=== PATIENT | male | born 1965 | race Caucasian/White ===

== ENCOUNTER → 2016-10-18 | Outpatient (CLI) | payer OTHER ==
[~2016-10-18] MED LIST: LSN20 PO; PRLSR20 PO
[2016-10-18 12:08] LABS: HEMATOCRIT 46.5 % (42-52); MEAN CELL VOLUME 80.9 fL (80-100); MEAN CORPUSCULAR HEMOGLOBIN 26.1 pg (25-34); MEAN CORPUSCULAR HGB CONC 32.3 g/dl (32-36); MEAN PLATELET VOLUME 9.3 fL (7.4-10.4); PLATELET COUNT 243 K/uL (130-400); RED BLOOD COUNT 5.75 M/uL (4.7-6.1); WHITE BLOOD COUNT 5.63 K/uL (4.8-10.8)
[2016-10-18 12:51] LABS: ALT/SGPT 39 U/L (12-78); AST/SGOT 21 U/L (15-37); BLOOD UREA NITROGEN 11 mg/dl (7-18); BUN/CREATININE RATIO 11.4 (10-20); CARBON DIOXIDE 32 mmol/L (21-32); CHLORIDE 107 mmol/L (98-107); CHOLESTEROL 273 mg/dl (0-200); GLUCOSE 111 mg/dl (70-99); POTASSIUM 4.1 mmol/L (3.5-5.1); SODIUM 142 mmol/L (136-145); TRIGLYCERIDES 194 mg/dl (0-150); VERY LOW DENSITY LIPOPROT CALC 39 mg/dl
[2016-10-18 13:02] LABS: ALB/GLOB RATIO 0.9 (0.9-2); ALKALINE PHOSPHATASE 86 U/L (45-117); CHOLESTEROL/HDL RATIO 10.1; HDL CHOLESTEROL 27 mg/dl; LDL CHOLESTEROL CALCULATED 207 mg/dl
--- NOTE | 2016-11-02 05:39 | CODING QUERY MEDICAL NECESSITY ---
CQSUPPORTING DIAGNOSIS NEEDED A supporting diagnosis is required for the test/procedure performed on this patient in order for us to be reimbursed by the patient's insurance. Please provide a supporting diagnosis for the following test/procedure listed below next to the test name along with your signature. *If there is no additional diagnosis for this patient that would support the following test/procedure please document that below next to the test/procedure. Test(s)/Procedure(s) that require a supporting diagnosis: DOS 10/18/16 VITAMIN B12 TEST Provider Signature: Date: Thank you Gila Alcaraz [facility] Information Management Once completed, please kindly fax back to [phone] For questions please call [phone]
== END | disposition home or self-care (01) ==
LOC: C.LAB1850 11:05
PROVIDERS: ATTEND Internal Medicine
DX: B18.2 Chronic viral hepatitis C (principal); R74.8 Abnormal levels of other serum enzymes; F41.9 Anxiety disorder, unspecified; M13.80 Other specified arthritis, unspecified site; R89.4 Abnormal immunological findings in specimens from other organs, systems and tissues

== ENCOUNTER → 2016-10-18 | Outpatient (CLI) | payer OTHER ==
--- NOTE | 2016-10-18 16:03 | DIAGNOSTIC IMAGING REPORT ---
RIGHT WRIST 4 VIEWS CLINICAL HISTORY: Immunologic findings of the hand and wrist. FINDINGS: 4 views of the right wrist are obtained. No prior studies are available for comparison at the time of dictation. The skeletal structures are well mineralized. No fracture is seen. A chronic avulsion injury is noted from the ulnar styloid. Minimal arthritic change is seen at the first carpometacarpal joint. There is mild degenerative narrowing at the radiocarpal articulation. No erosive change is seen. The overlying soft tissues are within normal limits. IMPRESSION: No acute bony abnormality or erosive change is identified in the right wrist. Electronically signed by: Nimesh Anguiano M.D. 10/18/2016 4:02 PM Dictated Date/Time: 10/18/2016 4:01 PM
--- NOTE | 2016-10-18 16:03 | DIAGNOSTIC IMAGING REPORT ---
LEFT WRIST 4 VIEWS HISTORY: NONSPECIFIC IMMUNOLOGICAL FINDINGS COMPARISON: None. FINDINGS: There is no fracture or dislocation. Soft tissues are unremarkable. No erosions identified. Bone mineralization is intact. IMPRESSION: Unremarkable left wrist. Electronically signed by: Hemant Chew M.D. 10/18/2016 4:02 PM Dictated Date/Time: 10/18/2016 4:01 PM
--- NOTE | 2016-10-18 16:03 | DIAGNOSTIC IMAGING REPORT ---
LEFT HAND MIN 3 VIEWS ROUTINE CLINICAL HISTORY: NONSPECIFIC IMMUNOLOGICAL FINDINGS HAND PAIN COMPARISON: None. DISCUSSION: No fractures are visualized. There are no erosive or destructive changes. The joint spaces appear relatively well-preserved. Minimal periarticular osteopenia cannot be excluded. There is no significant soft tissue swelling. IMPRESSION: 1. No acute fractures 2. No erosive or destructive changes identified Electronically signed by: Kwan Mccabe M.D. 10/18/2016 4:02 PM Dictated Date/Time: 10/18/2016 4:01 PM
--- NOTE | 2016-10-18 16:04 | DIAGNOSTIC IMAGING REPORT ---
RIGHT HAND 3 VIEWS CLINICAL HISTORY: Immunologic findings of the hand and wrist. FINDINGS: 3 views of the right hand are obtained. No prior studies are available for comparison at the time of dictation. The skeletal structures are well mineralized. No fracture is seen. A chronic avulsion injury is noted from the ulnar styloid. Minimal arthritic change is seen at the first carpometacarpal joint. The joint spaces of the hand are otherwise preserved. No erosive change is seen. The overlying soft tissues are within normal limits. IMPRESSION: No acute bony abnormality or erosive change is identified in the right hand. Electronically signed by: Nimesh Anguiano M.D. 10/18/2016 4:03 PM Dictated Date/Time: 10/18/2016 4:02 PM
[2016-10-23 02:46] LABS: ANTI-CENTROMERE AB <1.0 NEG AI (<1.0 NEG); ANTI-SS-A <1.0 NEG AI (<1.0 NEG); ANTI-SS-B <1.0 NEG AI (<1.0 NEG); DNA ds CRITHIDIA NEGATIVE (NEGATIVE); Sm Antibody <1.0 NEG AI (<1.0 NEG)
== END | disposition home or self-care (01) ==
LOC: C.RAD1850 15:40
PROVIDERS: ATTEND Internal Medicine Rheumatology
DX: M13.80 Other specified arthritis, unspecified site (principal); R89.4 Abnormal immunological findings in specimens from other organs, systems and tissues